=== PATIENT | female | born 1990 | race Caucasian/White ===

== ENCOUNTER 2020-06-12 08:35 | Inpatient (IN) | payer BC ==
[2020-06-12 08:55] LABS: #Basophils 0.1 thou/uL (0.0-0.2); #Eosinphils 0.4 thou/uL (0.0-0.7); #Lymphocytes 3.8 thou/uL (1.20-3.40); #Monocytes 0.5 thou/uL (0.11-0.59); #Neutrophils 5.1 thou/uL (1.40-6.50); %Basophils 1.2 % (0.0-1.0); %Eosinophils 3.8 % (0.0-10.0); %Lymphocytes 38.3 % (21.0-51.0); %Monocytes 4.7 % (0.0-10.0); Hemoglobin 14.2 g/dL (12.0-16.0); Mean Corpuscular HGB CONC 33.5 g/dL (32.0-36.0); Mean Corpuscular Volume 86.4 fL (78.0-98.0); Mean Platelet Volume 7.8 fL (7.4-10.4); Platelet Count 301 thou/uL (130-400); RBC Distribution Width 10.9 % (11.5-14.5); Red Blood Cell (RBC) Count 4.91 mill/uL (4.20-5.40); White Blood Cell (WBC) Count 9.8 thou/uL (4.8-10.8)
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
[2020-06-12 09:02] LABS: BHCG - Serum Negative (NEGATIVE); Pregs Control Background? CLEAR/WHITE (CLR/WHITE); Pregs Control Bar Appear? YES (CONTROL BAR)
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
[2020-06-12 09:03] LABS: INR-International Normal Ratio 0.9; PTT 26.1 sec (22.9-36.1); Prothrombin Time 12.4 sec (12.0-14.7)
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
[2020-06-12 09:17] LABS: ALT (SGPT) 35 U/L (8-55); AST (SGOT) 41 U/L (5-34); Alkaline Phosphatase 72 U/L (40-110); Anion Gap 15 mmol/L (10-20); BUN (Urea Nitrogen) 12 mg/dL (7.0-18.7); Bilirubin, Total 0.5 mg/dL (0.2-1.2); Calc. Creatinine Clearance 0 mL/min (70-130); Calcium 8.8 mg/dL (7.8-10.44); Carbon Dioxide 22 mmol/L (22-29); Chloride 104 mmol/L (98-107); Estimated GFR-MDRD 73; Glucose 127 mg/dL (70-105); Lipase 22 U/L (8-78); Potassium 3.9 mmol/L (3.5-5.1); Sodium 137 mmol/L (136-145)
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
[2020-06-12] MEDS ORDERED: Morphine 2 MG/ML SYRINGE ONE ×2 (09:27→10:34)
[2020-06-12 09:32] LABS: Bacteria/HPF 1+ HPF (None Seen); Bilirubin Negative (Negative); Blood, Urine 1+ (Negative); Clarity Clear (Clear); Glucose, Urine (Dipstick) Normal (Negative); Ketone, Urine Negative (Negative); Leukocyte Negative Leu/uL (Negative); Nitrite Negative (Negative); Protein, Urine (Dipstick) 20 mg/dL (Neg-Trace); Specific Gravity, Urine 1.032 (1.002-1.036); Squamous Epithelial 0-3 HPF (0-3); Urobilinogen Normal mg/dL (Less than 2); WBC/HPF 0-3 HPF (0-3); pH, Urine 6.5 (5.0-9.0)
[2020-06-12] MEDS ORDERED: Ketorolac Tromethamine 30 MG/ML VIAL ONE (10:35)
[2020-06-12] MEDS ORDERED: Iopamidol-370 76% 500 ML 1 ML ONE (11:23)
[2020-06-12] MEDS ORDERED: traMADol HCl 50 MG TAB ONE (12:31)
[2020-06-12] MEDS ORDERED: Acetaminophen 500 MG TAB ONE (12:31)
[2020-06-12] MEDS ORDERED: Ondansetron PF 4 MG/2 ML Vial ONE (12:33)
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
[2020-06-12] MEDS ORDERED: Promethazine HCl 25 MG/ML VIAL IM PRN ×2 (15:41)
[2020-06-12] MEDS ORDERED: Sodium Chloride 0.9% 1,000 ML IV SCH (15:41)
[2020-06-12] MEDS ORDERED: Ibuprofen 600 MG TAB PO PRN (15:41)
[2020-06-12] MEDS ORDERED: traMADol HCl 50 MG TAB PO PRN ×2 (15:41)
[2020-06-12] MEDS ORDERED: Dextrose 50% Abboject 50 ML SYRINGE SLOW IVP PRN (15:41)
[2020-06-12] MEDS ORDERED: Cyclobenzaprine 10 MG TAB PO PRN (15:41)
[2020-06-12] MEDS ORDERED: hydrALAZINE 20 MG/ML VIAL SLOW IVP PRN (15:41)
[2020-06-12] MEDS ORDERED: Ondansetron PF 4 MG/2 ML Vial IVP PRN (15:41)
[2020-06-12] MEDS ORDERED: Ondansetron ODT 4 MG TAB PO PRN (15:41)
[2020-06-12] MEDS ORDERED: Dextrose 5% in Water 1,000 ML IV PRN (15:41)
[2020-06-12 17:02] VITALS: BMI 32.1
[2020-06-12] MEDS: Acetaminophen 325 MG TAB PO SCH ×2 (17:23→23:01)
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
[2020-06-13] MEDS: Acetaminophen 325 MG TAB PO SCH ×2 (05:28→12:17)
[2020-06-13 06:03] LABS: #Eosinphils 0.1 thou/uL (0.0-0.7); #Lymphocytes 2.2 thou/uL (1.20-3.40); #Monocytes 0.7 thou/uL (0.11-0.59); #Neutrophils 7.3 thou/uL (1.40-6.50); %Basophils 0.2 % (0.0-1.0); %Eosinophils 1.2 % (0.0-10.0); %Lymphocytes 21.3 % (21.0-51.0); %Monocytes 6.3 % (0.0-10.0); %Neutrophils 70.9 % (42.0-75.0); Hemoglobin 12.3 g/dL (12.0-16.0); Mean Corpuscular HGB CONC 32.4 g/dL (32.0-36.0); Mean Corpuscular Hemoglobin 28.3 pg (27.0-31.0); Mean Corpuscular Volume 87.5 fL (78.0-98.0); Mean Platelet Volume 7.7 fL (7.4-10.4); Platelet Count 222 thou/uL (130-400); RBC Distribution Width 10.9 % (11.5-14.5); Red Blood Cell (RBC) Count 4.33 mill/uL (4.20-5.40); White Blood Cell (WBC) Count 10.2 thou/uL (4.8-10.8)
[2020-06-13 06:13] LABS: Anion Gap 11 mmol/L (10-20); BUN (Urea Nitrogen) 6 mg/dL (7.0-18.7); Calc. Creatinine Clearance 174 mL/min (70-130); Calcium 8.2 mg/dL (7.8-10.44); Carbon Dioxide 24 mmol/L (22-29); Chloride 107 mmol/L (98-107); Estimated GFR-MDRD Greater than 90; Glucose 89 mg/dL (70-105); Potassium 3.6 mmol/L (3.5-5.1); Sodium 138 mmol/L (136-145)
[2020-06-13] MEDS ORDERED: Enoxaparin Sodium 40 MG/0.4 ML SYRINGE SC SCH (09:00)
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
[2020-06-13 11:53] VITALS: BP 101/68; TEMP 98.4
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
== END 2020-06-13 15:32 | disposition home or self-care (01) | DRG 536 ==
LOC: ERS 08:35 → SJJU 15:32
PROVIDERS: ADMIT Specialist; ATTEND Specialist
DX: S32.89XA Fracture of other parts of pelvis, initial encounter for closed fracture (principal); N39.0 Urinary tract infection, site not specified; K59.00 Constipation, unspecified; V89.2XXA Person injured in unspecified motor-vehicle accident, traffic, initial encounter; W22.10XA Striking against or struck by unspecified automobile airbag, initial encounter; Z88.8 Allergy status to other drugs, medicaments and biological substances
CPT/HCPCS: 36415; 70450; 71045; 71260; 72125; 72170; 74177; 80048; 80053; 81003; 81015; 83690; 84703; 85025; 85610; 85730; 86850; 86900; 86901; 87086; G0390; J1650; J1885; J2270; J2405; J2550; Q0162; Q9967

== ENCOUNTER 2021-03-21 09:38 | Outpatient (CLI) | payer BC | END 2021-03-21 09:39 | disposition home or self-care (01) | LOC: BICRAD 09:38 | PROVIDERS: ATTEND Nurse Practitioner Family | DX: M47.22 Other spondylosis with radiculopathy, cervical region (principal) | CPT/HCPCS: 72050 ==

== ENCOUNTER 2021-06-22 08:19 | Outpatient (CLI) | payer BC | END 2021-06-22 08:20 | disposition home or self-care (01) | LOC: TBSIIMAG 08:19 | PROVIDERS: ATTEND Nurse Practitioner Family | DX: M54.12 Radiculopathy, cervical region (principal) | CPT/HCPCS: 72141 ==

== ENCOUNTER 2021-09-20 15:13 | Outpatient (CLI) | payer BC | END 2021-09-20 15:14 | disposition home or self-care (01) | LOC: BICMRI 15:13 | PROVIDERS: ATTEND Orthopaedic Surgery Hand Surgery | DX: M19.131 Post-traumatic osteoarthritis, right wrist (principal); M67.431 Ganglion, right wrist ==

== ENCOUNTER 2021-12-20 09:57 | Outpatient (CLI) | payer BC ==
[2021-12-20 11:06] LABS: #Basophils 0.1 10x3/uL (0.0-0.2); #Eosinphils 0.3 10x3/uL (0.0-0.5); #Monocytes 0.6 10x3/uL (0.0-1.1); #Neutrophils 6.7 10x3/uL (1.5-8.4); %Basophils 0.6 % (0.0-2.0); %Eosinophils 3.2 % (0.0-6.0); %Lymphocytes 23.6 % (18.0-47.0); %Monocytes 6.3 % (0.0-10.0); %Neutrophils 65.8 % (40.0-75.0); Hemoglobin 13.7 g/dL (12.0-15.5); Mean Corpuscular HGB CONC 33.6 g/dL (32.0-36.0); Mean Corpuscular Hemoglobin 28.5 pg (27.0-33.0); Mean Platelet Volume 9.7 fl (7.4-10.4); Platelet Count 278 10x3/uL (150-450); White Blood Cell (WBC) Count 10.2 10x3/uL (3.5-10.5)
[2021-12-20 18:26] LABS: SARS-CoV-2 PCR by NAA Not Detected (NotDetected)
== END 2021-12-20 09:58 | disposition home or self-care (01) ==
LOC: LABBT 09:57
PROVIDERS: ATTEND Orthopaedic Surgery Hand Surgery
DX: Z01.812 Encounter for preprocedural laboratory examination (principal); G56.01 Carpal tunnel syndrome, right upper limb; M67.431 Ganglion, right wrist; Z20.822 Contact with and (suspected) exposure to COVID-19
CPT/HCPCS: 84702; 85025; U0003; U0005

== ENCOUNTER 2021-12-25 08:31 | Day surgery (SDC) | payer BC ==
[2021-12-24 11:59] VITALS: BMI 33.6
[2021-12-25] MEDS ORDERED: Lidocaine 1% MPF 2 ML VIAL ONE (09:31)
[2021-12-25] MEDS ORDERED: Bacitracin Zinc Ointment 30 gm TUBE ONE (12:24)
[2021-12-25] MEDS ORDERED: Bupivacaine PF 0.5% 30 ML VIAL ONE (12:24)
[2021-12-25] MEDS ORDERED: Betamet Acet/Betamet Na Ph 30 MG/5 ML VIAL ONE (12:24)
[2021-12-25] MEDS ORDERED: Scopolamine 1.5 mg/72 hour Patch ONE (13:11)
[2021-12-25] MEDS ORDERED: Propofol 1,000 MG/100 ML VIAL IV ONE (13:19)
[2021-12-25] MEDS ORDERED: Promethazine HCl 25 MG/ML VIAL ONE (13:19)
[2021-12-25] MEDS ORDERED: Midazolam HCl 2 mg/2 ml Vial ONE (13:25)
[2021-12-25] MEDS ORDERED: Clindamycin/D5W 900 mg/50 ml Premix Bag ONE (13:33)
[2021-12-25] MEDS ORDERED: Levofloxacin 500 mg/D5W 100 ml Premix Bag ONE (13:33)
[2021-12-25] MEDS ORDERED: Ketorolac Tromethamine 30 MG/ML VIAL ONE (13:41)
[2021-12-25] MEDS ORDERED: Ondansetron PF 4 MG/2 ML Vial ONE (13:41)
[2021-12-25] MEDS ORDERED: Dexamethasone 20 MG/5 ML VIAL ONE (13:41)
[2021-12-25] MEDS ORDERED: diphenhydrAMINE 50 MG/ML VIAL ONE (13:41)
[2021-12-25] MEDS ORDERED: Glycopyrrolate 0.2 MG/ML 5 ML SYRINGE ONE (13:41)
[2021-12-25] MEDS ORDERED: PHENYLEPHRINE-NS 100 MCG/ML 10 ML SYRINGE ONE (13:41)
[2021-12-25] MEDS ORDERED: Fentanyl 100 MCG/2 ML VIAL ONE (14:03)
== END 2021-12-25 16:55 | disposition home or self-care (01) ==
LOC: SDC 08:31
PROVIDERS: ATTEND Orthopaedic Surgery Hand Surgery
PROC: 01N50ZZ Release Median Nerve, Open Approach (ICD-10-PCS; principal; 2021-12-25)
PROC: 0RBN0ZZ Excision of Right Wrist Joint, Open Approach (ICD-10-PCS; principal; 2021-12-25)
DX: G56.01 Carpal tunnel syndrome, right upper limb (principal); M67.431 Ganglion, right wrist; Z79.899 Other long term (current) drug therapy; Z88.1 Allergy status to other antibiotic agents
CPT/HCPCS: 88304; J0702; J1100; J1200; J1885; J1956; J2250; J2405; J2550; J2704; J3010; J3490; S0020